=== PATIENT | female | born 1950 | race Hispanic/Latino ===

== ENCOUNTER 2016-07-20 16:50 | Observation (INO) | payer BC, MEDICARE ==
[2016-07-20 16:57] VITALS: BMI 22.2
[2016-07-20] MEDS ORDERED: TDAP Vaccine 0.5 mL Syr IM ONE (17:01)
--- NOTE | 2016-07-20 17:01 | ED PDOC ---
Arrival/HPI <LeviAamir - Last Filed: 07/20/16 21:38> - General Historian: Patient, EMS <Judah Abel - Last Filed: 07/20/16 23:28> - General Time Seen by Provider: 07/20/16 16:52 - History of Present Illness Narrative History of Present Illness (Text): 07/20/16 16:53 66 y/o female, pmh including htn/hypothyroidism/dm, nkda, last tetanus doesn't remember, biba c/o fall landed on the posterior head x 2 hours. Pt. stated that she was walking on the stair about 2 steps up on the stair, accidentally tripped on the stair, lost the balance and fall on the posterior head, laceration noted immediately with the blood, has headache and dizziness from the head injury, no nausea or vomiting, no chest pain or shortness of breath, no palpitation, no cardiopulmonary or neurological complaints prior to the fall , no other medical or psychological complaints. (Judah Abel) Past Medical History - Provider Review Nursing Documentation Reviewed: Yes - Infectious Disease Hx of Infectious Diseases: None - Cardiac Hx Cardiac Disorders: Yes Hx Hypertension: Yes Other/Comment: hypercholesteremia - Pulmonary Hx Respiratory Disorders: No - Neurological Hx Neurological Disorder: No - HEENT Hx HEENT Disorder: No - Renal Hx Renal Disorder: No - Endocrine/Metabolic Hx Endocrine Disorders: Yes Hx Diabetes Mellitus Type 2: Yes (IDDM) Hx Hypothyroidism: Yes - Hematological/Oncological Hx Blood Disorders: No - Integumentary Hx Dermatological Disorder: No - Musculoskeletal/Rheumatological Hx Musculoskeletal Disorders: No - Gastrointestinal Hx Gastrointestinal Disorders: No - Genitourinary/Gynecological Hx Genitourinary Disorders: No - Psychiatric Hx Psychophysiologic Disorder: Yes Hx Anxiety: Yes Hx Depression: Yes Hx Substance Use: No - Surgical History Hx Appendectomy: Yes Hx Cataract Extraction: Yes Hx Tonsillectomy: Yes Other/Comment: torn meniscus repair, carpal tunnel surgery - Anesthesia Hx Anesthesia: Yes Hx Anesthesia Reactions: No Hx Malignant Hyperthermia: No - Suicidal Assessment Feels Threatened In Home Enviroment: No <Judah Abel - Last Filed: 07/20/16 23:28> Family/Social History - Physician Review Nursing Documentation Reviewed: Yes Family/Social History: Unknown Family HX Smoking Status: Current Some Days Smoker Hx Alcohol Use: Yes Hx Substance Use: No <AbelJudah Tucker - Last Filed: 07/20/16 23:28> Allergies/Home Meds <Aamir Sims - Last Filed: 07/20/16 21:38> <Judah Abel - Last Filed: 07/20/16 23:28> Allergies/Adverse Reactions: Allergies No Known Allergies Allergy (Verified 07/20/16 16:57) Home Medications: Home Meds Medication Instructions Recorded Confirmed Canagliflozin [Invokana] 300 mg PO DAILY 12/18/14 12/18/14 Insulin Detemir [Levemir Flexpen] 14 unit SUBCUT HS 12/18/14 12/18/14 Levothyroxine Sodium [Synthroid] 0.025 mg PO DAILY 12/18/14 12/18/14 Metformin HCl [Metformin] 1,000 mg PO DAILY 12/18/14 12/18/14 Verapamil [Calan Tab] 120 mg PO DAILY 12/18/14 12/18/14 Review of Systems - Physician Review All systems were reviewed & negative as marked: Yes - Review of Systems Constitutional: absent: Fatigue, Fevers Eyes: absent: Vision Changes ENT: absent: Hearing Changes Respiratory: absent: Cough Cardiovascular: absent: Chest Pain Gastrointestinal: absent: Abdominal Pain, Diarrhea, Nausea, Vomiting Musculoskeletal: absent: Arthralgias, Back Pain Skin: absent: Rash, Pruritis Neurological: Headache, Dizziness. absent: Focal Weakness, Gait Changes, Speech Changes, Facial Droop, Disequilibrium, Seizure Psychiatric: absent: Anxiety, Depression, Suicidal Ideation <Judah Abel - Last Filed: 07/20/16 23:28> Physical Exam - Systems Exam Head: Present: Atraumatic, Normocephalic Pupils: Present: PERRL Extroacular Muscles: Present: EOMI Conjunctiva: Present: Normal Ears: Present: NORMAL TM, Normal Canal. No: Erythema, TM Bulging Mouth: Present: Moist Mucous Membranes Pharnyx: No: ERYTHEMA, EXUDATE, TONSILS ENLARGED Nose (External): Present: Atraumatic. No: Abrasion, Contusion, Laceration Nose (Internal): Present: Normal Inspection, No Active Bleeding. No: Rhinorrhea , Septal Deviation, Septal Hematoma Neck: Present: Normal Range of Motion, Trachea Midline. No: Meningeal Signs, MIDLINE TENDERNESS, Paraspinal Tenderness, Lymphadenopathy Respiratory/Chest: Present: Clear to Auscultation, Good Air Exchange. No: Respiratory Distress, Accessory Muscle Use Cardiovascular: Present: Regular Rate and Rhythm, Normal S1, S2. No: Murmurs Abdomen: Present: Normal Bowel Sounds. No: Tenderness, Distention, Peritoneal Signs Back: Present: Normal Inspection, Other (Throacic to LS spine: no midline tenderness or step off, no paraspinal tenderness, FROM without limitation, sensation intact, motor 5/5, no saddling gait. ). No: CVA Tenderness, Midline Tenderness, Paraspinal Tenderness, Pain with Leg Raise, Decubitus Ulcer Upper Extremity: Present: Normal Inspection. No: Cyanosis, Edema Lower Extremity: Present: Normal Inspection. No: Edema Neurological: Present: GCS=15, CN II-XII Intact, Speech Normal, Normal Cerebellar Funct, Gait Normal, Memory Normal, Other (normal finger to nose test , normal heel to villagomez test, no focal neurological deficits. ) Skin: Present: Warm, Dry, Normal Color. No: Rashes Psychiatric: Present: Alert, Oriented x 3, Normal Insight, Normal Concentration <Judah Abel - Last Filed: 07/20/16 23:28> Vital Signs Temp Pulse Resp BP Pulse Ox 07/20/16 17:12 98.0 F 92 H 18 147/63 96 Medical Decision Making - EKG Interpretation Interpreted by ED Physician: Yes Type: 12 lead EKG <Aamir Sims - Last Filed: 07/20/16 21:38> - RAD Interpretation Refrigerator Glazier: Radiologist <Judah Abel - Last Filed: 07/20/16 23:28> ED Course and Treatment: 07/20/16 20:29 Case was d/w neurosurgery .Ct Head reviewed by him.States unlikely that finding is traumatic hemorrhage.Recommends CT Head repeat tommorrow .Will admit for observation overnight. aware. (Aamir Sims) 07/20/16 17:03 -tdap, tylenol, meclizine -CT head and cervical -wound irrigate with normal saline, clean with betadine, will staple. 07/20/16 20:15 -CT Head is inconclusive as there is hyperdense lesion which I discussed with the incoming ER attending DR. Sims as he will speak to the neurosurgeon Dr. Espitia, will need MRI of the head. -CT Cervical show no acute traumatic findings. -I discussed with the patient and the family which they told me that the patient has some "twist" on the rt. cerebellum region which she never follow up , I told them I have no previous images to compared to as this can not rule out acute bleed. -Pt. agreed to be admitted for further evaluation. -I received the call from DR. Murphy from the [facility] which her impression is low probability for bleed as this is unlikely but she can not be sure which the MRI is the best option. -Dr. Mariano notified and will observe the patient. -Staple wound not be used as the patient will likely have MRI tomorrow or repeat CT. -wound irrigate and clean 1000cc of normal saline, clean with betadine, 1cc of plain 1% lidocaine injected locally, 3-0 prolene made 4 sutures which I explained to the patient that this needs to be removed in 7 days, bacitracin and gauze dressing applied, hemostasis obtained, bacitracin and gauze dressing applied. 07/20/16 20:56 -Pt. request the pain medication for her chronic lt. shoulder pain as she was suppose to have steroid injection to the lt. shoulder tomorrow. -I ordered labs/fall precautions/aspiration risk/IVF/neurocheck every 4 hours/ NPO and consult for Dr. Howell. -I ordered percocet and Lidoderm patch for the lt. shoulder pain. I told the CRITICAL CARE TRANSPORT NURSE that to hold all NSAIDs from the patient. -I spoke to Dr. Mariano over the phone about the CT head inconclusive result and the case, he agreed to admit the patient to his service with neurosurgery consult. -Dr. Sims spoke to the neursurgeon Dr. Dawn which Dr. Dawn reviewed the CT head and stated that this is unlikely bleed but will repeat the scan tomorrow. Dr. Sims will put in the admission order. ( Judah Abel) - RAD Interpretation Radiology Orders: 07/20/16 17:01 CERVICAL SPINE W/O CONTRAST [CT] Stat HEAD W/O CONTRAST [CT] Stat 07/20/16 20:12 CHEST PORTABLE [RAD] Stat CLINICAL HISTORY: 66 years old, female; Injury or trauma; Fall; Initial encounter; Laceration; Not specified; Injury date: 07/20/2016 TECHNIQUE: Axial computed tomography images of the cervical spine without intravenous contrast. This CT exam was performed using one or more of the following dose reduction techniques : automated exposure control, adjustment of the mA and/or kV according to patient size, and/ or use of iterative reconstruction technique. Coronal and sagittal reformatted images were created and reviewed. EXAM DATE/TIME: 07/20/2016 5:01 PM COMPARISON: No relevant prior studies available. FINDINGS: VERTEBRAE: No acute cervical spine fractures visualized. No significant vertebral subluxation seen on the sagittal reformatted images. Normal alignment of C1 and C2 and of the facet joints. DISCS/SPINAL CANAL/NEURAL FORAMINA: Multilevel degenerative disc disease, moderate in degree overall. Marked degenerative changes at the atlantoaxial joint. Multilevel facet joint degenerative changes. SOFT TISSUES: No acute abnormality of the visualized soft tissues is seen. LUNG APICES: No pneumothorax seen. IMPRESSION: - No acute cervical spine fractures identified. - See above for remaining findings. Thank you for allowing us to participate in the care of your patient. MICHAELA MIRELES | Final Radiology Report Dictated and Authenticated by: Isatu Murphy MD 07/20/2016 8:06 PM Eastern Time ([place] & [place]) CT Head: FINDINGS: BRAIN: Best seen on image 12 of series 3, there is an 11 x 10 mm rounded focus of hyperdensity in the right cerebellum, localized to the right middle cerebellar peduncle, with a CT attenuation of 51 Hounsfield units. Diffuse, age-related cortical atrophy and ventriculomegaly. Otherwise, no evidence of significant acute process. No acute extra-axial fluid collections visualized. No evidence of midline shift, ventricular effacement, basilar cistern effacement , or other significant intracranial mass effect. VENTRICLES: Fourth ventricle is patent. BONES/JOINTS: No acute fractures or other acute bony abnormality noted. SOFT TISSUES: Soft tissue swelling in the left posterior scalp. SINUSES: Opacification of a single right posterior ethmoid sinus. Remaining visualized paranasal sinuses appear clear. MASTOID AIR CELLS: Mastoid air cells appear clear. IMPRESSION: - 11 x 10 mm hyperdense, round focus in the right cerebellum, localized to the right middle cerebral peduncle, suspicious for acute hemorrhage. This may be unrelated to the recent head trauma, as this is an unusual location for post traumatic hemorrhage. Consider followup MRI of the brain for further evaluation. - See above for remaining findings. Thank you for allowing us to participate in the care of your patient. Dictated and Authenticated by: Isatu Murphy MD 07/20/2016 7:58 PM Eastern Time ([place] & [place]) (Judah Abel) - EKG Interpretation EKG Interpretation (Text): 07/20/16 21:38 EKG- NSR @ 75,septal infarct,NSSTT changes (Aamir Sims) - Medication Orders Current Medication Orders: Sodium Chloride (Sodium Chloride 0.9%) 1,000 mls @ 100 mls/hr IV .Q10H MICHAEL Insulin Detemir (Levemir) 14 unit SC HS MICHAEL Levothyroxine Sodium (Synthroid) 25 mcg PO ACB MICHAEL Verapamil HCl (Calan Tab) 120 mg PO DAILY MICHAEL Discontinued Medications Acetaminophen (Tylenol 325mg Tab) 650 mg PO STAT STA Stop: 07/20/16 17:03 Last Admin: 07/20/16 17:38 Dose: 650 MG MAR Pain/Vitals Document 07/20/16 17:38 EQ (Rec: 07/20/16 17:38 EQ [facility] [id number]) Pain Reassessment Is This A Pain ReAssessment? No Lidocaine (Lidoderm) 1 ea TD STAT STA Stop: 07/20/16 20:54 Meclizine HCl (Antivert) 25 mg PO STAT STA Stop: 07/20/16 17:03 Last Admin: 07/20/16 17:38 Dose: 25 MG Oxycodone/Acetaminophen (Percocet 5/325 Mg Tab) 1 tab PO STAT STA Stop: 07/20/16 20:54 Tetanus/Reduced Diphtheria/Acell Pertussis (Boostrix Vaccine Inj) 0.5 ml IM .ONCE ONE Stop: 07/20/16 17:02 Last Admin: 07/20/16 17:38 Dose: 0.5 ML [facility] Immunization Data Document 07/20/16 17:38 EQ (Rec: 07/20/16 17:40 EQ [facility] [id number]) Immunization Data Opt out of sending immunization data to No respository? Suppress immunization data to other No providers from registry? Vaccine Lot Number [id number] Vaccine Expiration Date 07/16/18 Site Given Left Deltoid Route Intramuscular Immunization Units ml - PA / MIXER HELPER / Resident Statement GUILLERMO has reviewed & agrees with the documentation as recorded. GUILLERMO has examined the patient and agrees with the treatment plan. <Aamir Sims - Last Filed: 07/20/16 21:38> - PA / MIXER HELPER / Resident Statement GUILLERMO has reviewed & agrees with the documentation as recorded. <Judah Abel - Last Filed: 07/20/16 23:28> Disposition/Present on Arrival <Aamir Sims - Last Filed: 07/20/16 21:38> - Present on Arrival Any Indicators Present on Arrival: No History of DVT/PE: No History of Uncontrolled Diabetes: No Urinary Catheter: No History of Decub. Ulcer: No History Surgical Site Infection Following: None - Disposition Have Diagnosis and Disposition been Completed?: Yes Disposition Time: 20:17 Patient Plan: Admission <Judah Abel - Last Filed: 07/20/16 23:28> - Disposition Diagnosis: Brain lesion, Fall, Scalp laceration, Abnormal computed tomography of head Disposition: HOSPITALIZED Patient Problems: Current Active Problems Problem Status Diagnosed Brain lesion Acute Fall Acute Scalp laceration Acute Condition: STABLE
--- NOTE | 2016-07-20 19:58 | CT ---
EXAM: CT Head Without Intravenous Contrast. CLINICAL HISTORY: 66 years old, female; Injury or trauma; Fall; Initial encounter; Laceration; Consciousness not specified; Without residual foreign body; Head, generalized; Injury date: 07/20/2016; Additional info: Posterior head laceration S/P fall TECHNIQUE: Axial computed tomography images of the head/brain without intravenous contrast. This CT exam was performed using one or more of the following dose reduction techniques: automated exposure control, adjustment of the mA and/or kV according to patient size, and/or use of iterative reconstruction technique. EXAM DATE/TIME: 07/20/2016 5:01 PM COMPARISON: No relevant prior studies available. FINDINGS: BRAIN: Best seen on image 12 of series 3, there is an 11 x 10 mm rounded focus of hyperdensity in the right cerebellum, localized to the right middle cerebellar peduncle, with a CT attenuation of 51 Hounsfield units. Diffuse, age-related cortical atrophy and ventriculomegaly. Otherwise, no evidence of significant acute process. No acute extra-axial fluid collections visualized. No evidence of midline shift, ventricular effacement, basilar cistern effacement, or other significant intracranial mass effect. VENTRICLES: Fourth ventricle is patent. BONES/JOINTS: No acute fractures or other acute bony abnormality noted. SOFT TISSUES: Soft tissue swelling in the left posterior scalp. SINUSES: Opacification of a single right posterior ethmoid sinus. Remaining visualized paranasal sinuses appear clear. MASTOID AIR CELLS: Mastoid air cells appear clear. IMPRESSION: - 11 x 10 mm hyperdense, round focus in the right cerebellum, localized to the right middle cerebral peduncle, suspicious for acute hemorrhage. This may be unrelated to the recent head trauma, as this is an unusual location for post traumatic hemorrhage. Consider followup MRI of the brain for further evaluation. - See above for remaining findings.
--- NOTE | 2016-07-20 20:07 | CT ---
EXAM: CT Cervical Spine Without Intravenous Contrast. CLINICAL HISTORY: 66 years old, female; Injury or trauma; Fall; Initial encounter; Laceration; Not specified; Injury date: 07/20/2016 TECHNIQUE: Axial computed tomography images of the cervical spine without intravenous contrast. This CT exam was performed using one or more of the following dose reduction techniques: automated exposure control, adjustment of the mA and/or kV according to patient size, and/or use of iterative reconstruction technique. Coronal and sagittal reformatted images were created and reviewed. EXAM DATE/TIME: 07/20/2016 5:01 PM COMPARISON: No relevant prior studies available. FINDINGS: VERTEBRAE: No acute cervical spine fractures visualized. No significant vertebral subluxation seen on the sagittal reformatted images. Normal alignment of C1 and C2 and of the facet joints. DISCS/SPINAL CANAL/NEURAL FORAMINA: Multilevel degenerative disc disease, moderate in degree overall. Marked degenerative changes at the atlantoaxial joint. Multilevel facet joint degenerative changes. SOFT TISSUES: No acute abnormality of the visualized soft tissues is seen. LUNG APICES: No pneumothorax seen. IMPRESSION: - No acute cervical spine fractures identified. - See above for remaining findings.
[2016-07-20] MEDS ORDERED: Oxycodone/Acetaminophen 5/325 mg Tab PO STA (20:53)
[2016-07-20] MEDS: Sodium Chloride 0.9% 1,000 ML IV SCH (23:49)
[2016-07-20] MEDS: Lidocaine 5% Patch TD STA (23:55)
[2016-07-21] MEDS: Insulin Detemir 100 units/ml Vial (Levemir) SC SCH ×2 (00:02→08:12)
[2016-07-21 00:07] LABS: ADD MANUAL DIFF? NO
[2016-07-21 00:18] LABS: ALB/GLOB RATIO 1.3 (1.1-1.8); ALKALINE PHOSPHATASE 81 U/L (38-133); ALT/SGPT 53 U/L (7-56); AST/SGOT 47 U/L (15-39); BILIRUBIN,TOTAL 0.3 mg/dL (0.2-1.3); BLOOD UREA NITROGEN 25 mg/dL (7-21); CALCIUM 9.5 mg/dL (8.4-10.5); CARBON DIOXIDE 26 mmol/L (21-33); CHLORIDE 96 mmol/L (98-107); GFR AFRICAN-AMERICAN > 60; POTASSIUM 4.3 mmol/L (3.6-5.0); SODIUM 135 mmol/L (132-148); TOTAL PROTEIN 7.3 g/dL (5.8-8.3)
[2016-07-21 00:21] LABS: BASO # 0.03 K/mm3 (0.0-2.0); BASO % 0.4 % (0.0-3.0); EOS # 0.1 (0.0-0.7); EOS % 1.1 % (1.5-5.0); GRAN # 5.44 (1.4-6.5); GRAN % 65.9 % (50.0-68.0); HEMATOCRIT 42.1 % (36.0-48.0); LYMPH # 2.2 (1.2-3.4); LYMPH % 26.3 % (22.0-35.0); MEAN CELL VOLUME 93.3 fL (80.0-105.0); MEAN CORPUSCULAR HEMOGLOBIN 31.9 pg (25.0-35.0); MEAN CORPUSCULAR HGB CONC 34.2 g/dl (31.0-37.0); MONO # 0.5 (0.1-0.6); MONO % 6.3 % (1.0-6.0); PLATELET COUNT 367 10^3/uL (120.0-450.0); RED CELL DISTRIBUTION WIDTH 13.9 % (11.5-14.5); WHITE BLOOD COUNT 8.3 10^3/ul (4.5-11.0)
[2016-07-21 00:26] LABS: GLUCOSE,RANDOM 482 mg/dL (70-110)
[2016-07-21] MEDS ORDERED: Morphine 2 mg/ml ISec IVP STA (01:02)
[2016-07-21] MEDS ORDERED: Insulin Regular 1 UNITS/0.01 ML ML SC STA (01:02)
[2016-07-21 05:28] VITALS: O2SAT 97
[2016-07-21] MEDS: Sodium Chloride 0.9% 1,000 ML IV SCH (05:58)
[2016-07-21] MEDS ORDERED: Oxycodone/Acetaminophen 5/325 mg Tab PO STA ×2 (06:00→12:42)
[2016-07-21] MEDS ORDERED: Dextrose 50% SYRINGE Inj (50 ml) ONE (07:03)
[2016-07-21] MEDS ORDERED: Dextrose 5%/0.9% NS 1,000 ML IV SCH (07:15)
[2016-07-21] MEDS ORDERED: Levothyroxine 25 MCG TAB PO SCH (07:30)
--- NOTE | 2016-07-21 08:03 | RAD ---
HISTORY: medical clearance COMPARISON: CT chest without contrast from 08/07/2013 FINDINGS: LUNGS: The lungs are well inflated and clear. There is no focal consolidation. PLEURA: No significant pleural effusion identified, no pneumothorax apparent. CARDIOVASCULAR: Normal. OSSEOUS STRUCTURES: No significant abnormalities. VISUALIZED UPPER ABDOMEN: Normal. OTHER FINDINGS: None. IMPRESSION: No active pulmonary disease.
[2016-07-21] MEDS: Lidocaine 5% Patch TD STA (08:18)
--- NOTE | 2016-07-21 10:24 | CP.PCM.PN ---
Subjective - Date & Time of Evaluation Date of Evaluation: 07/21/16 Time of Evaluation: 10:18 - Subjective Subjective: pt fell has 1 cm intra cerebellar hematoma MRI pending fully intact ok to d/c if mri does not show anything other than this hematoma than can be d/c 'ed home Objective - Vital Signs/Intake and Output Vital Signs (last 24 hours): Temp Pulse Resp BP Pulse Ox 97.7 F 72 18 119/70 97 07/21/16 05:27 07/21/16 05:27 07/21/16 05:27 07/21/16 05:27 07/21/16 05:27 Intake and Output: 07/21/16 07/21/16 06:59 18:59 Intake Total 643 Output Total 400 Balance 243 - Medications Medications: Current Medications Dextrose/Sodium Chloride (Dextrose 5%/0.9% Ns 1000 Ml) 1,000 mls @ 60 mls/hr IV .[id number] [facility] Last Admin: 07/21/16 08:17 Dose: 60 mls/hr Insulin Detemir (Levemir) 14 unit SC HS [facility] Last Admin: 07/21/16 08:12 Dose: Not Given Levothyroxine Sodium (Synthroid) 25 mcg PO ACB [facility] Last Admin: 07/21/16 08:20 Dose: 25 mcg Lisinopril (Zestril) 10 mg PO DAILY [facility] - Labs Labs: 07/20/16 23:48 07/20/16 23:48
--- NOTE | 2016-07-21 10:46 | MRI ---
PROCEDURE: MRI BRAIN WITHOUT CONTRAST HISTORY: fall COMPARISON: None. TECHNIQUE: Multiplanar, multisequence MR images of the brain were obtained without intravenous contrast enhancement. FINDINGS: HEMORRHAGE: There is a probable cavernous hemangioma in the right middle cerebellar peduncle. This measures 6 x 12 mm. The lesion is markedly hypo intense on gradient echo imaging image 6 series 7. This is secondary to hemosiderin deposition. The lesion has variable signal intensity on T2 and FLAIR imaging. This is of doubtful clinical significance. DWI: No evidence of an acute or early subacute infarction. BRAIN PARENCHYMA: No mass effect or edema. No atrophy or chronic microvascular ischemic changes. VENTRICLES: Unremarkable. No hydrocephalus. CRANIUM: Unremarkable. ORBITS: Grossly unremarkable. PARANASAL SINUSES/MASTOIDS: Clear VASCULAR SYSTEM: Skull base flow voids intact. OTHER FINDINGS: None. IMPRESSION: No acute intracranial findings. 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
--- NOTE | 2016-07-21 12:04 | CARD ---
APPROVED REPORT EKG Measurement Heart [id number] <Conclusion> Normal sinus rhythm Poor RR progression Abnormal ECG
[2016-07-21 12:06] VITALS: RESP 20
[2016-07-21 17:52] VITALS: BP 140/77; PULSE 74; TEMP 97.6
--- NOTE | 2016-07-21 20:34 | HP ---
The patient is a 66-year-old white female admitted on 07/20/16. The patient has a history of insulin -dependent diabetes mellitus, history of hypertension in the past. She had a fall at home, hitting h er head. She has a history of an intracerebral bleed in the past. The patient denies any syncope or seizure activity. She was brought to the Emergency Room with a laceration of the scalp. She was cruz tured. She had a CT done, which showed an old lesion, but was unable to assess whether she had any new intra cerebral bleeding, so she was held over for neurological examination and repeat MRI. PHYSICAL EXAMINATION: Shows a well-developed, well-nourished white female. She is extremely anxious and nervous, but she i s awake, and alert and oriented x 3. NEUROLOGIC EXAMINATION: Grossly intact. Cranial nerves II-XII are intact. Pupils are equal and linda ct to light and accommodation. Extraocular muscles are intact. There is a sutured laceration on the posterior aspect of the occipital skull. Her [id number] is within normal limits. Her equilibri um examination is normal. HEART: Regular sinus rhythm. CHEST: Clear to auscultation and percussion. ABDOMEN: Soft. EXTREMITIES: Without cyanosis, clubbing, edema. There is no physical trauma. IMPRESSION: A 66-year-old white female with a history of insulin-dependent diabetes mellitus poorly controlled, anxiety disorder, history of a central nervous system bleed in the past, with recent head trauma and fall. Tapan Mariano MD cc: [id number] TT: 07/21/2016 20:33:26 jn
--- NOTE | 2016-07-22 08:51 | DS ---
A 66-year-old white female with history of insulin-dependent diabetes mellitus, poorly controlled; an xiety disorder, status post fall, laceration of the scalp, old intracranial bleed, no new intracrania l bleed; syncopal episode. The patient was seen by Dr. Espitia, neurology. She had a CT and MRI which showed old intracrani al bleed. She was monitored in the hospital. Her blood sugars were controlled. She was under neuro logical checks while in the hospital. Eventually, the patient was able to be ambulated. She is awak e and alert and oriented x 3. Neurological examination did not change, and the patient was able to be discharged home in improved condition to be followed as an outpatient. FINAL DISCHARGE DIAGNOSES: Fall, scalp laceration, scalp contusion, and history of poorly controlled diabetes, and intracranial bleed in the past. Tapan Mariano MD cc: [id number] TT: 07/22/2016 08:50:59 jn
== END 2016-07-21 18:30 | disposition home or self-care (01) ==
LOC: ED 16:50 → ERH 21:16 → 2RNO 07-21 00:48
PROVIDERS: ADMIT Internal Medicine; ATTEND Internal Medicine
DX: S01.01XA Laceration without foreign body of scalp, initial encounter (principal); S00.03XA Contusion of scalp, initial encounter; E11.65 Type 2 diabetes mellitus with hyperglycemia; I10 Essential (primary) hypertension; F41.9 Anxiety disorder, unspecified; E03.9 Hypothyroidism, unspecified; E78.00 Pure hypercholesterolemia, unspecified; W10.8XXA Fall (on) (from) other stairs and steps, initial encounter; Y92.019 Unspecified place in single-family (private) house as the place of occurrence of the external cause; Y93.01 Activity, walking, marching and hiking; Z79.4 Long term (current) use of insulin
CPT/HCPCS: 70450; 70551; 71010; 72125; 80053; 82948; 85025; 86850; 86900; 90471; 90715; 93005; 96372; 99285; G0378; J2270; J7040; J7042

== ENCOUNTER 2016-08-24 22:03 | Observation (INO) | payer BC, MEDICARE ==
[2016-08-24 22:07] VITALS: BMI 23.3
[2016-08-24 22:30] LABS: ADD MANUAL DIFF? NO
[2016-08-24 22:33] LABS: BASO # 0.07 K/mm3 (0.0-2.0); BASO % 0.6 % (0.0-3.0); EOS # 0.1 (0.0-0.7); EOS % 1.2 % (1.5-5.0); GRAN # 6.54 (1.4-6.5); GRAN % 60.4 % (50.0-68.0); HEMATOCRIT 36.9 % (36.0-48.0); LYMPH # 3.3 (1.2-3.4); LYMPH % 30.2 % (22.0-35.0); MEAN CELL VOLUME 92.5 fL (80.0-105.0); MEAN CORPUSCULAR HEMOGLOBIN 31.3 pg (25.0-35.0); MEAN CORPUSCULAR HGB CONC 33.9 g/dl (31.0-37.0); MEAN PLATELET VOLUME 9.5 fl (7.0-11.0); MONO # 0.8 (0.1-0.6); MONO % 7.6 % (1.0-6.0); PLATELET COUNT 357 10^3/uL (120.0-450.0); RED CELL DISTRIBUTION WIDTH 14.4 % (11.5-14.5); WHITE BLOOD COUNT 10.8 10^3/ul (4.5-11.0)
--- NOTE | 2016-08-24 22:42 | ED PDOC ---
Arrival/HPI - General Chief Complaint: Chest Pain Time Seen by Provider: 08/24/16 22:04 Historian: Patient, EMS - History of Present Illness Narrative History of Present Illness (Text): 08/24/16 22:39 Marita Roman is a 66 year old female, with a history of hypertension, hypothyroidism, diabetes and hypercholesterolemia, presents to the emergency department for altered mental status. Patient complains of numbness and tingling sensation to left arm, but denies any chest pain or shortness of breath. EKG done by EMS, revealed possible ST elevations in inferior leads and code heart was called. Patient denies any other complaints at this time. Time/Duration: 1/2 hour Symptom Onset: Sudden Symptom Course: Improving Activities at Onset: Light Context: Home Past Medical History - Provider Review Nursing Documentation Reviewed: Yes - Infectious Disease Hx of Infectious Diseases: None - Reproductive Menopause: Yes - Cardiac Hx Cardiac Disorders: Yes Hx Hypertension: Yes - Pulmonary Hx Respiratory Disorders: No - Neurological Hx Neurological Disorder: No - HEENT Hx HEENT Disorder: No - Renal Hx Renal Disorder: No - Endocrine/Metabolic Hx Endocrine Disorders: Yes Hx Diabetes Mellitus Type 1: Yes Hx Hypothyroidism: Yes - Hematological/Oncological Hx Blood Disorders: No - Integumentary Hx Dermatological Disorder: No - Musculoskeletal/Rheumatological Hx Musculoskeletal Disorders: No Hx Falls: Yes - Gastrointestinal Hx Gastrointestinal Disorders: No - Genitourinary/Gynecological Hx Genitourinary Disorders: No - Psychiatric Hx Psychophysiologic Disorder: Yes Hx Anxiety: Yes Hx Depression: Yes Hx Substance Use: No - Surgical History Hx Appendectomy: Yes Other/Comment: torn meniscus repair, carpal tunnel surgery, tonsillectomy, cataract extraction - Anesthesia Hx Anesthesia: Yes Hx Anesthesia Reactions: No Hx Malignant Hyperthermia: No - Suicidal Assessment Feels Threatened In Home Enviroment: No Family/Social History - Physician Review Nursing Documentation Reviewed: Yes Family/Social History: No Known Family HX Smoking Status: Never Smoked Hx Alcohol Use: No Hx Substance Use: No Allergies/Home Meds Allergies/Adverse Reactions: Allergies No Known Allergies Allergy (Verified 08/24/16 22:10) Home Medications: Home Meds Medication Instructions Recorded Confirmed Canagliflozin [Invokana] 300 mg PO DAILY 12/18/14 12/18/14 Insulin Detemir [Levemir Flexpen] 14 unit SUBCUT HS 12/18/14 12/18/14 Levothyroxine Sodium [Synthroid] 0.025 mg PO DAILY 12/18/14 12/18/14 Metformin HCl 1,000 mg PO DAILY 12/18/14 12/18/14 Verapamil [Calan Tab] 120 mg PO DAILY 12/18/14 12/18/14 Review of Systems - Physician Review All systems were reviewed & negative as marked: Yes - Review of Systems Constitutional: Normal. absent: Fatigue, Fevers Respiratory: Normal. absent: SOB, Cough Cardiovascular: Normal. absent: Chest Pain Musculoskeletal: Other (numbness and tingling sensation to left arm ) Neurological: Normal. absent: Headache, Dizziness Psychiatric: Normal Physical Exam Vital Signs Reviewed: Yes Vital Signs Temp Pulse Resp BP Pulse Ox 08/25/16 03:39 80 15 119/56 L 94 L 08/25/16 03:37 79 61 H 08/25/16 03:11 72 18 104/55 L 99 08/25/16 02:04 74 16 137/70 100 08/25/16 00:04 98.4 F 72 18 142/78 99 08/24/16 22:09 75 16 136/54 L 97 Temperature: Afebrile Blood Pressure: Hypotensive Pulse: Regular Respiratory Rate: Normal Appearance: Positive for: Well-Appearing, Non-Toxic, Comfortable Pain Distress: None Mental Status: Positive for: Alert and Oriented X 3 Finger Stick Blood Glucose: 164 - Systems Exam Head: Present: Atraumatic, Normocephalic Extroacular Muscles: Present: EOMI Conjunctiva: Present: Normal Mouth: Present: Moist Mucous Membranes Respiratory/Chest: Present: Clear to Auscultation, Good Air Exchange. No: Respiratory Distress, Accessory Muscle Use Cardiovascular: Present: Regular Rate and Rhythm, Normal S1, S2. No: Murmurs Abdomen: Present: Normal Bowel Sounds. No: Tenderness, Distention, Peritoneal Signs Upper Extremity: Present: Normal Inspection. No: Cyanosis, Edema Lower Extremity: Present: Normal Inspection. No: Edema Neurological: Present: GCS=15, CN II-XII Intact, Speech Normal Skin: Present: Warm, Dry, Normal Color. No: Rashes Psychiatric: Present: Alert, Oriented x 3, Normal Insight, Normal Concentration Medical Decision Making ED Course and Treatment: 08/24/16 22:44 Impression: A 66 year old female who presents to the emergency department complaining for altered mental status. Plan: -- CT Head -- EKG -- Labs, cardiac enzymes -- Chest X-ray -- Urinalysis -- Reassess and disposition Progress Notes: 08/25/16 00:02 EXAM: CT Head Without Intravenous Contrast FINDINGS: Brain: No acute intracranial hemorrhage. Age-appropriate periventricular white matter disease. No edema. Findings within the right middle cerebellar peduncle, consistent with a cavernous hemangioma, unchanged in size from 07/20/2016. Ventricles: Age-appropriate ventriculomegaly. Bones: No acute displaced fracture. Sinuses: Unremarkable as visualized. No acute sinusitis. Mastoid air cells: Unremarkable as visualized. No mastoid effusion. IMPRESSION: Stable CT examination of the head, without acute intracranial hemorrhage, or suspicious mass effect. 08/25/16 00:58 Case discussed with who agrees with the plan to observe patient in telemetry for AMS. Accepts patient under his service. - Lab Interpretations Lab Results: 08/24/16 22:24 08/24/16 22:24 Lab Results 08/24/16 22:24: Sodium 134, Potassium 3.8, Chloride 102, Carbon Dioxide 26, Anion Gap 10, BUN 30 H, Creatinine 0.8, Est GFR ( Amer) > 60, Est GFR ( Non-Af Amer) > 60, Random Glucose 132 H, Calcium 8.9, Magnesium 2.3 H, Total Bilirubin 0.4, AST 35, ALT 47, Alkaline Phosphatase 82, Lactate Dehydrogenase 431, Total Creatine Kinase 136, Troponin I < 0.01, Total Protein 6.5, Albumin 3.8, Globulin 2.7, Albumin/Globulin Ratio 1.4 08/24/16 22:24: WBC 10.8 D, RBC 3.99, Hgb 12.5, Hct 36.9, MCV 92.5, MCH 31.3, MCHC 33.9, RDW 14.4, Plt Count 357, MPV 9.5, Gran % 60.4, Lymph % (Auto) 30.2, [place] % (Auto) 7.6 H, Eos % (Auto) 1.2 L, Baso % (Auto) 0.6, Gran # 6.54 H, Lymph # 3.3, [place] # 0.8 H, Eos # 0.1, Baso # 0.07 08/24/16 22:11: POC Glucose (mg/dL) 165 H - RAD Interpretation Radiology Orders: 08/24/16 22:15 HEAD W/O CONTRAST [CT] Stat CHEST ONE VIEW [RAD] Stat - Medication Orders Current Medication Orders: Discontinued Medications Insulin Detemir (Levemir) 14 unit SC HS MICHAEL Insulin Human Regular (Humulin R Low) 0 units SC ACHS MICHAEL PRN Reason: Protocol Last Admin: 08/25/16 07:53 Dose: 4 units Levothyroxine Sodium (Synthroid) 25 mcg PO DAILY MICHAEL Last Admin: 08/25/16 09:07 Dose: 25 mcg Verapamil HCl (Calan Tab) 120 mg PO DAILY MICHAEL Last Admin: 08/25/16 09:07 Dose: 120 mg - Scribe Statement The provider has reviewed the documentation as recorded by the Adrian Penny Provider Attestation: All medical record entries made by the Adrian were at my direction and personally dictated by me. I have reviewed the chart and agree that the record accurately reflects my personal performance of the history, physical exam, medical decision making, and the department course for this patient. I have also personally directed, reviewed, and agree with the discharge instructions and disposition. Disposition/Present on Arrival - Present on Arrival Any Indicators Present on Arrival: No History of DVT/PE: No History of Uncontrolled Diabetes: Yes Urinary Catheter: No History of Decub. Ulcer: No History Surgical Site Infection Following: None - Disposition Have Diagnosis and Disposition been Completed?: Yes Diagnosis: Altered mental status Disposition: HOSPITALIZED Disposition Time: 00:55 Condition: FAIR
[2016-08-24 22:43] LABS: ALB/GLOB RATIO 1.4 (1.1-1.8); ALKALINE PHOSPHATASE 82 U/L (38-133); ALT/SGPT 47 U/L (7-56); AST/SGOT 35 U/L (15-39); BILIRUBIN,TOTAL 0.4 mg/dL (0.2-1.3); BLOOD UREA NITROGEN 30 mg/dL (7-21); CALCIUM 8.9 mg/dL (8.4-10.5); CARBON DIOXIDE 26 mmol/L (21-33); CHLORIDE 102 mmol/L (98-107); GFR AFRICAN-AMERICAN > 60; GLUCOSE,RANDOM 132 mg/dL (70-110); MAGNESIUM 2.3 mg/dL (1.7-2.2); POTASSIUM 3.8 mmol/L (3.6-5.0); SODIUM 134 mmol/L (132-148); TOTAL PROTEIN 6.5 g/dL (5.8-8.3)
[2016-08-24 22:55] LABS: TROPONIN I < 0.01 ng/mL
--- NOTE | 2016-08-24 23:37 | CT ---
EXAM: CT Head Without Intravenous Contrast CLINICAL HISTORY: 66 years old, female; Pain and signs and symptoms; Syncope and collapse; Headache; Tension; Additional info: Near syncope TECHNIQUE: Axial computed tomography images of the head/brain without intravenous contrast. This CT exam was performed using one or more of the following dose reduction techniques: automated exposure control, adjustment of the mA and/or kV according to patient size, and/or use of iterative reconstruction technique. COMPARISON: CT - HEAD W/O CONTRAST 07/20/2016 6:39:35 PM FINDINGS: Brain: No acute intracranial hemorrhage. Age-appropriate periventricular white matter disease. No edema. Findings within the right middle cerebellar peduncle, consistent with a cavernous hemangioma, unchanged in size from 07/20/2016. Ventricles: Age-appropriate ventriculomegaly. Bones: No acute displaced fracture. Sinuses: Unremarkable as visualized. No acute sinusitis. Mastoid air cells: Unremarkable as visualized. No mastoid effusion. IMPRESSION: Stable CT examination of the head, without acute intracranial hemorrhage, or suspicious mass effect.
[2016-08-25 04:13] VITALS: TEMP 97.5
[2016-08-25] MEDS ORDERED: Insulin Reg-LOW-Coverage SC SCH (07:30)
--- NOTE | 2016-08-25 08:14 | RAD ---
PROCEDURE: CHEST RADIOGRAPH, 1 VIEW HISTORY: pain COMPARISON: 07/20/2016 FINDINGS: LUNGS: Clear. PLEURA: No pneumothorax or pleural fluid seen. CARDIOVASCULAR: Normal. OSSEOUS STRUCTURES: No significant abnormalities. VISUALIZED UPPER ABDOMEN: Normal. OTHER FINDINGS: None. IMPRESSION: No active disease.
[2016-08-25] MEDS ORDERED: Levothyroxine 25 MCG TAB PO SCH (10:00)
[2016-08-25 11:38] VITALS: BP 130/86; PULSE 65; RESP 12; O2SAT 99
--- NOTE | 2016-08-25 12:31 | CON ---
DATE: 08/25/2016 REASON FOR CONSULTATION: Cardiac evaluation, admitted with hypoglycemia, syncope. BRIEF CLINICAL HISTORY: This is a 66-year-old female with a past medical history of diabetes, histor y of cardiac catheterization many years ago, told nonobstructive coronary artery disease, admitted wi th altered mental status secondary to hypoglycemia. Initial EKG shows some questionable ST elevation , so code STEMI was called, later on was canceled. EKG in the ER was absolutely negative. The patie nt denies any chest pain, shortness of breath, any palpitation. PAST MEDICAL HISTORY: Significant for diabetes, hyperlipidemia, hypertension, history of cardiac cat heterization done many years ago and was told negative. CURRENT MEDICATIONS: The patient is taking verapamil, metformin, levothyroxine, insulin, Invokana. REVIEW OF SYSTEMS: As per HPI. PHYSICAL EXAMINATION: VITAL SIGNS: Temperature afebrile, heart rate 80, blood pressure . HEENT: PERRLA. Extraocular muscles intact. NECK: Supple. No carotid bruits. No thyromegaly. CHEST: Clear to auscultation. HEART: S1, S2 regular. ABDOMEN: Soft. EXTREMITIES: Clubbing, cyanosis negative. BLOOD WORKUP: WBC 10.8, hemoglobin 12. , hematocrit 36.9, platelet count 357. Chemistry shows s odium 130, potassium 3. , chloride 102, carbon dioxide 26, anion gap of 10, BUN 30, creatinine 0. 8. Troponin 0.01, negative. EKG shows normal sinus. IMPRESSION: No evidence of acute myocardial infarction, no evidence of acute coronary syndrome, hypo glycemia on admission, syncope. RECOMMENDATION: risk factors, suggest echo and a stress test. The patient is being discharged already according to the patient by Dr. Mariano, so we will schedule a stress test next week. We will follow with you. Thank you, Dr. Mariano, for providing us the opportunity in taking care of the patient. Sai Dyer MD cc: [id number] TT: 08/25/2016 12:30:26 Confirmation # [id number] Dictation # [id number]
--- NOTE | 2016-08-25 18:48 | HP ---
HISTORY OF PRESENT ILLNESS: A 66-year-old white female with history of insulin-dependent diabetes me llitus, multiple episodes of syncope in the past, recent history of falling and head trauma. The pat tori had been doing well at home, controlling her blood sugars; however, she took her insulin but did not immediately eat and wound up passing out on the floor, 911 was called. In the ambulance it was noted the patient had elevated ST segments. The patient was brought to the Emergency Room. There we re no further EKG changes noticed in the ER. First troponin was negative. The patient was transferr ed to the intensive care unit for observation and possible CAD. PHYSICAL EXAMINATION: GENERAL: Shows a well-developed but thin white female in no apparent distress. HEENT: Essentially within normal limits. HEART: Regular sinus rhythm. No S3 or murmurs. CHEST: Clear to auscultation and percussion. ABDOMEN: Benign. EXTREMITIES: Without cyanosis, clubbing or edema. NEUROLOGIC: Grossly intact. IMPRESSION AND PLAN: A 66-year-old white female admitted after a syncopal episode, possible hypoglyc emic episode and elevated ST segments on EKG. Rule out coronary artery disease. Tapan Mariano MD cc: [id number] TT: 08/25/2016 18:47:42 precious
--- NOTE | 2016-08-25 20:51 | DS ---
A 66-year-old white female admitted to the hospital with a syncopal episode, taking her insulin witho ut eating. The patient also had some elevated ST segments in the ambulance. Repeat EKGs and troponi ns were all negative. The patient was seen in consultation by Dr. Dyer. The patient was scheduled f or an outpatient stress test, was able to be discharged home in improved condition. FINAL DISCHARGE DIAGNOSES: Syncope secondary to hypoglycemia, abnormal EKG. Tapan Mariano MD cc: [id number] TT: 08/25/2016 20:50:09 precious
[2016-08-25] MEDS ORDERED: Insulin Detemir 100 units/ml Vial (Levemir) SC SCH (22:00)
[2016-08-25] MEDS ORDERED: INSULIN DETEMIR 14 UNIT SUBCUT SCH (22:00)
--- NOTE | 2016-08-25 22:53 | CARD ---
APPROVED REPORT EKG Measurement Heart [id number] <Conclusion> Normal sinus rhythm Normal ECG
== END 2016-08-25 12:12 | disposition home or self-care (01) ==
LOC: ED 22:03 → ERH 08-25 00:56 → CCU 08-25 03:43
PROVIDERS: ADMIT Internal Medicine; ATTEND Internal Medicine
DX: E10.649 Type 1 diabetes mellitus with hypoglycemia without coma (principal); R94.31 Abnormal electrocardiogram [ECG] [EKG]; R55 Syncope and collapse; I10 Essential (primary) hypertension; E78.5 Hyperlipidemia, unspecified; E03.9 Hypothyroidism, unspecified; I25.10 Atherosclerotic heart disease of native coronary artery without angina pectoris; Z79.4 Long term (current) use of insulin
CPT/HCPCS: 70450; 71010; 80053; 82550; 82948; 83615; 83735; 84484; 85025; 93005; 99285; G0378

== ENCOUNTER 2016-11-29 20:56 | Observation (INO) | payer BC, MEDICARE ==
[2016-11-29 21:02] VITALS: BMI 20.7
--- NOTE | 2016-11-29 21:23 | ED PDOC ---
Arrival/HPI - General Historian: Patient - History of Present Illness Time/Duration: Prior to Arrival Symptom Onset: Sudden Symptom Course: Worsening Context: Walking - General Chief Complaint: Trauma Time Seen by Provider: 11/29/16 21:00 - History of Present Illness Narrative History of Present Illness (Text): 11/29/16 21:20 66 year old female with past medical history of 1 cm intracerebellar hemorrhage presents after experiencing a fall while walking her dog. Patient states that she had stopped to tie her shoe lace and then felt dizzy and tried to get up and fell and hit her head. Patient is only complaining of a headache. Patient is not on anticoagulant. She denies denies having any weakness or numbness in her extremities. (Beverly Rizzo) Past Medical History - Provider Review Nursing Documentation Reviewed: Yes - Infectious Disease Hx of Infectious Diseases: None - Cardiac Hx Hypertension: Yes - Pulmonary Hx Respiratory Disorders: No - Neurological Hx Neurological Disorder: No - HEENT Hx HEENT Disorder: No - Renal Hx Renal Disorder: No - Endocrine/Metabolic Hx Endocrine Disorders: Yes Hx Diabetes Mellitus Type 1: Yes Hx Hypothyroidism: Yes - Hematological/Oncological Hx Blood Disorders: No - Integumentary Hx Dermatological Disorder: No - Musculoskeletal/Rheumatological Hx Arthritis: Yes - Gastrointestinal Hx Gastrointestinal Disorders: No - Genitourinary/Gynecological Hx Genitourinary Disorders: No - Psychiatric Hx Psychophysiologic Disorder: Yes Hx Anxiety: Yes Hx Depression: Yes Hx Substance Use: No - Surgical History Hx Appendectomy: Yes Other/Comment: torn meniscus repair, carpal tunnel surgery, tonsillectomy, cataract extraction - Anesthesia Hx Anesthesia: Yes Hx Anesthesia Reactions: No Hx Malignant Hyperthermia: No - Suicidal Assessment Feels Threatened In Home Enviroment: No Family/Social History - Physician Review Nursing Documentation Reviewed: Yes Family/Social History: Unknown Family HX Smoking Status: Never Smoked Hx Alcohol Use: No Hx Substance Use: No Allergies/Home Meds Allergies/Adverse Reactions: Allergies No Known Allergies Allergy (Verified 11/29/16 21:02) Home Medications: Home Meds Medication Instructions Recorded Confirmed Canagliflozin [Invokana] 100 mg PO DAILY 12/18/14 11/29/16 Levothyroxine Sodium [Synthroid] 0.88 mg PO DAILY 12/18/14 11/29/16 Metformin HCl 500 mg PO DAILY 12/18/14 11/29/16 Ezetimibe 10 mg PO DAILY 09/07/16 11/29/16 Review of Systems - Review of Systems Systems not reviewed;Unavailable: Acuity of Condition Physical Exam Temperature: Afebrile Blood Pressure: Hypertensive Pulse: Regular Respiratory Rate: Normal Appearance: Positive for: Uncomfortable Pain Distress: Moderate Mental Status: Positive for: Alert and Oriented X 3 - Systems Exam Head: Present: Contusion, Laceration (bump on right posterior aspect of head with significant bleeding noted. ) Mouth: Present: Moist Mucous Membranes Neck: Present: Normal Range of Motion Respiratory/Chest: Present: Clear to Auscultation, Good Air Exchange. No: Respiratory Distress, Accessory Muscle Use Cardiovascular: Present: Regular Rate and Rhythm, Normal S1, S2. No: Murmurs Abdomen: Present: Normal Bowel Sounds. No: Tenderness, Distention Lower Extremity: No: Edema, CALF TENDERNESS Neurological: Present: GCS=15, CN II-XII Intact, Speech Normal Skin: Present: Laceration Psychiatric: Present: Alert, Oriented x 3, Normal Insight, Normal Concentration Vital Signs Temp Pulse Resp BP Pulse Ox 11/29/16 23:34 17 118/67 97 11/29/16 21:11 98 F 100 H 16 150/51 L 100 Medical Decision Making - EKG Interpretation Interpreted by ED Physician: Yes Type: 12 lead EKG ED Course and Treatment: Impression: In agreement with resident note, which includes further HPI details. Patient was seen and evaluated with resident, came up with plan and treatment together. 66 year old female presents s/p fall while walking her dog. Pt reports she was tying her shoe when she felt dizzy, fell, and hit her head; now complaining of headache. Plan: -- CT Head -- CT Cervical Spine -- Percocet -- Lidocaine -- Reassess and disposition Laceration repair performed with biomedical manager. Hematoma evacuated PROCEDURE: LACERATION REPAIR Performed by the emergency provider Location: Right posterior scalp Length: 2 inches Description: clean wound edges, no foreign bodies Distal CMS: Normal. No deficits. Neurovascularly intact. Anesthesia: Lidocaine 1% Preparation: The wound was cleaned with NS and Betadyne. The area was prepped and draped in the usual sterile fashion. Exploration: The wound was explored and no foreign bodies were found. Procedure: The wound was closed with 4-0, 3-0 nylon and viccryl. There was good approximation. In total, 6 stitches were used. Post-Procedure: Good closure and hemostasis. The patient tolerated the procedure well and there were no complications. CSM remains intact. Post procedure dressing applied. 11/29/16 23:[address] Tomas, who is aware and agrees with plan. Accepts pt in to hospitalist service. regional vice president life sales transmission engineer notified. (Herman Conner) 11/29/16 21:25 66 year old female presented after experiencing a questionable mechanical fall outside. significant bleeding and a small raised bump noted on posterior aspect of head. Will get CT of head without contrast 11/29/16 23:43 Patient's hematoma is evacuated and is sutured. (Beverly Rizzo) - Lab Interpretations Lab Results: 11/29/16 23:12 11/29/16 23:12 Lab Results 11/29/16 23:12: PT 10.1, INR 0.94, APTT 25.3 11/29/16 23:12: WBC 14.2 H D, RBC 4.26, Hgb 13.1, Hct 39.2, MCV 92.0, MCH 30.8, MCHC 33.4, RDW 13.3, Plt Count 422, MPV 10.2, Gran % 74.9 H, Lymph % (Auto) 17.4 L, [place]ck[place] % (Auto) 5.9, Eos % (Auto) 1.1 L, Baso % (Auto) 0.7, Gran # 10.61 H , Lymph # 2.5, Mckenzie # 0.8 H, Eos # 0.2, Baso # 0.10 11/29/16 23:12: Sodium 133, Potassium 4.5, Chloride 98, Carbon Dioxide 24, Anion Gap 16, BUN 35 H, Creatinine 0.7, Est GFR ( Amer) > 60, Est GFR ( Non-Af Amer) > 60, Random Glucose 461 H* D, Calcium 9.6, Total Bilirubin 0.3, AST 36, ALT 46, Alkaline Phosphatase 79, Total Protein 7.2, Albumin 4.2, Globulin 3.1, Albumin/Globulin Ratio 1.4 - RAD Interpretation Narrative RAD Interpretations (Text): 11/29/16 21:51 CT of head shows hematoma on right side. No skull fractures noted (Karim,Beverly) Radiology Orders: 11/29/16 21:12 HEAD W/O CONTRAST [CT] Stat 11/29/16 21:40 CERVICAL SPINE W/O CONTRAST [CT] Stat - EKG Interpretation EKG Interpretation (Text): 11/30/16 00:[address] changes. Normal axis, normal interval (Beverly Rizzo) - Medication Orders Current Medication Orders: Sodium Chloride (Sodium Chloride 0.9%) 1,000 mls @ 125 mls/hr IV .Q8H MICHAEL Last Admin: 11/29/16 23:33 Dose: 125 mls/hr Insulin Detemir (Levemir) 14 unit SC HS MICHAEL Discontinued Medications Cefazolin Sodium (Ancef 1gm In Ns) 1 gm in 100 mls @ 100 mls/hr IVPB STAT STA PRN Reason: Protocol Stop: 11/30/16 01:14 Lidocaine HCl (Lidocaine 1% (20ml)) 20 ml IJ STAT STA Stop: 11/29/16 21:46 Ondansetron HCl (Zofran Odt) Confirm Administered Dose 4 mg .ROUTE .STK-MED ONE Stop: 11/29/16 23:04 Oxycodone/Acetaminophen (Percocet 5/325 Mg Tab) 1 tab PO STAT STA Stop: 11/29/16 21:41 Last Admin: 11/29/16 21:47 Dose: 1 tab Disposition/Present on Arrival - Present on Arrival Any Indicators Present on Arrival: Yes History of DVT/PE: No History of Uncontrolled Diabetes: Yes Urinary Catheter: No History of Decub. Ulcer: No History Surgical Site Infection Following: None - Disposition Have Diagnosis and Disposition been Completed?: Yes Disposition Time: 00:00 Patient Plan: Admission - Disposition Diagnosis: Scalp hematoma Disposition: HOSPITALIZED Condition: STABLE
[2016-11-29] MEDS ORDERED: Oxycodone/Acetaminophen 5/325 mg Tab PO STA (21:40)
[2016-11-29] MEDS ORDERED: Lidocaine 1% Inj (20ml) IJ STA (21:45)
--- NOTE | 2016-11-29 22:25 | CT ---
EXAM: CT Head Without Intravenous Contrast CLINICAL HISTORY: 66 years old, female; Injury or trauma; Fall; Initial encounter; Abrasion; Head, generalized TECHNIQUE: Axial computed tomography images of the head/brain without intravenous contrast. This CT exam was performed using one or more of the following dose reduction techniques: automated exposure control, adjustment of the mA and/or kV according to patient size, and/or use of iterative reconstruction technique. EXAM DATE/TIME: 11/29/2016 9:12 PM COMPARISON: Prior head CT of 08/24/2016 FINDINGS: BRAIN: Stable appearance of a faint 1.3 cm oval-shaped focus of hyperdensity in the right posterior fossa, in the region of the middle cerebellar peduncle, also seen on a prior MRI, most likely representing a cavernous angioma. Diffuse, age-related cortical atrophy and ventriculomegaly. No significant acute abnormality identified. No acute hemorrhage seen within the brain. No acute extra-axial fluid collections visualized. No evidence of significant mass effect within the brain. VENTRICLES: See above. BONES/JOINTS: No acute fractures or other acute bony abnormality noted. SOFT TISSUES: Marked soft tissue swelling in the right scalp posteriorly. There is a large scalp hematoma in this area, measuring 3 cm. SINUSES: Visualized paranasal sinuses appear clear. MASTOID AIR CELLS: Mastoid air cells appear clear. IMPRESSION: - No evidence of acute intracranial injury or fractures. - Large hematoma in the right posterior scalp. - Stable appearance of a 1.3 cm hyperdense lesion in the right posterior fossa, most likely a cavernous angioma. - See above for remaining findings.
[2016-11-29] MEDS: Sodium Chloride 0.9% 1,000 ML IV SCH (23:33)
[2016-11-29 23:50] LABS: BASO % 0.7 % (0.0-3.0); EOS # 0.2 (0.0-0.7); EOS % 1.1 % (1.5-5.0); GRAN # 10.61 (1.4-6.5); GRAN % 74.9 % (50.0-68.0); HEMOGLOBIN 13.1 gm/dL (12.0-16.0); LYMPH # 2.5 (1.2-3.4); LYMPH % 17.4 % (22.0-35.0); MEAN CORPUSCULAR HEMOGLOBIN 30.8 pg (25.0-35.0); MEAN CORPUSCULAR HGB CONC 33.4 g/dl (31.0-37.0); MEAN PLATELET VOLUME 10.2 fl (7.0-11.0); MONO # 0.8 (0.1-0.6); MONO % 5.9 % (1.0-6.0); PLATELET COUNT 422 10^3/uL (120.0-450.0); RBC 4.26 10^6/uL (3.5-6.1); RED CELL DISTRIBUTION WIDTH 13.3 % (11.5-14.5)
[2016-11-29 23:56] LABS: WHITE BLOOD COUNT 14.2 10^3/ul (4.5-11.0)
[2016-11-29 23:57] LABS: ALB/GLOB RATIO 1.4 (1.1-1.8); ALBUMIN 4.2 g/dL (3.0-4.8); ALT/SGPT 46 U/L (7-56); AST/SGOT 36 U/L (15-39); BLOOD UREA NITROGEN 35 mg/dL (7-21); CALCIUM 9.6 mg/dL (8.4-10.5); GFR AFRICAN-AMERICAN > 60; GFR NON-AFRICAN AMERICAN > 60
[2016-11-30 00:07] LABS: INR 0.94 (0.93-1.08); PARTIAL THROMBOPLASTIN TIME 25.3 Seconds (23.7-30.8); PROTHROMBIN TIME 10.1 Seconds (9.9-11.8)
[2016-11-30] MEDS ORDERED: Insulin Detemir 100 units/ml Vial (Levemir) SC SCH (00:15)
[2016-11-30] MEDS ORDERED: ceFAZolin 1 gm in NS 1 GM/100 ML BAG IVPB STA (00:15)
--- NOTE | 2016-11-30 01:02 | CT ---
EXAM: CT Cervical Spine Without Intravenous Contrast CLINICAL HISTORY: 66 years old, female; Injury or trauma; Fall; Initial encounter; Abrasion TECHNIQUE: Axial computed tomography images of the cervical spine without intravenous contrast. This CT exam was performed using one or more of the following dose reduction techniques: automated exposure control, adjustment of the mA and/or kV according to patient size, and/or use of iterative reconstruction technique. Coronal and sagittal reformatted images were created and reviewed. EXAM DATE/TIME: 11/29/2016 9:40 PM COMPARISON: Prior cervical spine CT of 07/20/2016 FINDINGS: VERTEBRAE: Marked degenerative changes at the atlantoaxial joint. No acute cervical spine fractures visualized. No significant vertebral subluxation seen on the sagittal reformatted images. Normal alignment of the facet joints. DISCS/SPINAL CANAL/NEURAL FORAMINA: Mild to moderate multilevel degenerative disc disease, greatest at C4-5. Mild, multilevel facet joint degenerative changes. SOFT TISSUES: No acute abnormality of the visualized soft tissues is seen. LUNG APICES: No pneumothorax seen. IMPRESSION: - No acute cervical spine fractures identified. - See above for remaining findings.
--- NOTE | 2016-11-30 02:12 | CP.PCM.HP ---
<HEATH DELGADO - Last Filed: 11/30/16 02:15> History of Present Illness - History of Present Illness History of Present Illness: CC: Mechanical Fall HPI: Mrs. Roman is a 66 year old female, with a past medical history of "angulated" intracerebral vascular malformation, hypertension, hypothyroidism, diabetes and hypercholesterolemia, presented to the ED after she suffered superficial trauma from a mechanical fall. Patient reports that she was walking her dog earlier in the afternoon on 11/29 and she bent over to tie her shoe. She states that as she was doing so she fell backwards and hit the back of her head. Patient denies headache, changes in vision, vertigo, gait imbalance or syncope prior to or after her fall. She reports that she has an "angular vascular malformation" in her brain and [facility] "been there since she was a child most likely". Patient received suturing and wound care for the lacerations she suffered from her fall in the ED. A CT head and CT cervical spine both showed no acute findings. A lesion consistent with an intracerebral cavernous hemangioma was seen on CT head. Patient was found to have a BP of 150/51 at 21:11 and then 118/67 at 23:34, however she reports that her normal BP at home is in the 110-120/70 range. Currently, patient reports that she is asymptomatic. She denies headache, dizziness, changes in her vision, fever, shortness of breath, chest pain, palpitations, abdominal pain, N/V or diarrhea. PMH: "angulated" intracerebral vascular malformation, hypertension, hypothyroidism, diabetes and hypercholesterolemia PSH: torn meniscus repair, carpal tunnel surgery, tonsillectomy, cataract extraction Family History: Non-contributory Social History: denies tobacco, alcohol or illicit drug use Allergies: NKDA Home meds: as per MAR Present on Admission - Present on Admission Any Indicators Present on Admission: No Review of Systems - Review of Systems Review of Systems: Please refer to HPI Past Patient History - Infectious Disease Hx of Infectious Diseases: None - Past Social History Smoking Status: Never Smoked - CARDIAC Hx Hypertension: Yes - PULMONARY Hx Respiratory Disorders: No - NEUROLOGICAL Hx Neurological Disorder: No - HEENT Hx HEENT Problems: No - RENAL Hx Chronic Kidney Disease: No - ENDOCRINE/METABOLIC Hx Endocrine Disorders: Yes Hx Diabetes Mellitus Type 1: Yes Hx Hypothyroidism: Yes - HEMATOLOGICAL/ONCOLOGICAL Hx Blood Disorders: No - INTEGUMENTARY Hx Dermatological Problems: No - MUSCULOSKELETAL/RHEUMATOLOGICAL Hx Arthritis: Yes - GASTROINTESTINAL Hx Gastrointestinal Disorders: No - GENITOURINARY/GYNECOLOGICAL Hx Genitourinary Disorders: No - PSYCHIATRIC Hx Psychophysiologic Disorder: Yes Hx Anxiety: Yes Hx Depression: Yes Hx Substance Use: No - SURGICAL HISTORY Hx Appendectomy: Yes Other/Comment: torn meniscus repair, carpal tunnel surgery, tonsillectomy, cataract extraction - ANESTHESIA Hx Anesthesia: Yes Hx Anesthesia Reactions: No Hx Malignant Hyperthermia: No Meds Allergies/Adverse Reactions: Allergies Allergy/AdvReac Type Severity Reaction Status Date / Time No Known Allergies Allergy Verified 11/29/16 21:02 Physical Exam - Constitutional Appears: No Acute Distress - Head Exam Head Exam: NORMOCEPHALIC Additional comments: 2-3cm laceration with sutures on R posterior cranium - Eye Exam Eye Exam: EOMI, Normal appearance, PERRL. absent: Conjunctival injection, Periorbital swelling, Periorbital tenderness Pupil Exam: NORMAL ACCOMODATION, PERRL. absent: Fixed, Irregular, Unequal - ENT Exam ENT Exam: Mucous Membranes Moist, Normal Exam - Neck Exam Neck exam: Positive for: Full Rom, Normal Inspection. Negative for: Lymphadenopathy, Meningismus, Tenderness - Respiratory Exam Respiratory Exam: Clear to Auscultation Bilateral, NORMAL BREATHING PATTERN. absent: Rales, Rhonchi, Wheezes, Respiratory Distress, Stridor - Cardiovascular Exam Cardiovascular Exam: REGULAR RHYTHM, RRR, +S1, +S2. absent: Bradycardia, Tachycardia - GI/Abdominal Exam GI & Abdominal Exam: Normal Bowel Sounds, Soft. absent: Distended, Firm, Tenderness - Exam Exam: absent: Bladder Distension - Extremities Exam Extremities exam: Positive for: normal capillary refill, pedal pulses present. Negative for: calf tenderness, pedal edema - Back Exam Back exam: absent: CVA tenderness (L), CVA tenderness (R) - Neurological Exam Neurological exam: Alert, CN II-XII Intact, Oriented x3 - Psychiatric Exam Psychiatric exam: Normal Affect, Normal Mood - Skin Skin Exam: Dry, Intact, Normal Color, Warm Results - Vital Signs Recent Vital Signs: Last Vital Signs Temp 97.7 F 11/30/16 01:46 Pulse 80 11/30/16 01:46 Resp 16 11/30/16 01:46 BP 102/60 08/07/17 01:46 Pulse Ox 96 11/30/16 01:46 - Labs Result Diagrams: 11/29/16 23:12 11/29/16 23:12 Assessment & Plan - Assessment and Plan (Free Text) Assessment: 66 year old female, with a past medical history of "angulated" intracerebral vascular malformation, hypertension, hypothyroidism, diabetes and hypercholesterolemia, presented to the ED after she suffered superficial trauma from a mechanical fall Plan: 1. S/P Mechanical Fall -No acute findings on CT head/cervical spine -Lesion consistent with an intracerebral cavernous hemangioma was seen on CT head; patient reporting history of intracerebral vascular malformation -appropriate wound care provided in ED -Percocet 5/325 PRN for severe pain -Tylenol 650 PRN for moderate pain -Motrin 400 PRN for mild pain -Zofran PRN for N/V -neuro checks Q4H -neurology consulted, will follow recommendations 2. Leukocytosis -WBC was 14.2 on 11/29 -afebrile, normotensive and HR wnl -given one dose of Ancef in ED -cont to monitor with CBC 3. History of DM2 -cont metformin -Humulin SSI medium -levemir 14u HS -fingersticks Q4H 4. History of Hypothyroidism -hold home synthroid pending TSH 5. History of HLD -cont zetia 6. GI/DVT Prophylaxis -protonix/scd's Patient seen and case discussed in detail with attending, Dr. Tomas. - Date & Time Date: 11/30/16 Time: 02:15 Decision To Admit - Pt Status Changed To: Hospital Disposition Of: Observation - . Bed Request Type: Remote Telemetry <Alian Tomas - Last Filed: 11/30/16 04:33> Results - Vital Signs Recent Vital Signs: Last Vital Signs Temp 97.7 F 11/30/16 01:46 Pulse 80 11/30/16 01:46 Resp 19 11/30/16 02:12 BP 102/60 11/30/16 01:46 Pulse Ox 97 11/30/16 02:12 - Labs Result Diagrams: 11/29/16 23:12 11/29/16 23:12 Attending/Attestation - Attestation I have personally seen and examined this patient.: Yes I have fully participated in the care of the patient.: Yes I have reviewed all pertinent clinical information: Yes Notes (Text): 11/30/16 04:03 Patient was seen when she was in bed # 1 in the ER. Agree with history , physical examination, assessment and plan. Following information should be added. This 66 year old white woman with PMH of NIDDM, HLD, HTN, hypothyroidism, anxiety,depression, cerebellar hemorrhage, past Surgical history of appendectomy, tonsillectomy, two knee surgeries, two surgeries for carpal tunnel syndrome, two surgeries for cataract,three surgeries for trigger finger, social history positive for smoking 5 cigarettes per week for 2 years, 30 years ago, occasional alcohol use, family history positive for mastectomy(Sister),CAD(Father),HTN(Mother), review of systems positive for fall on ice 5 years ago, arthritis of both knees, back, neck,hands, decrease hearing in left ear, epistaxis as a child , allergies, sinus problems, peptic ulcer disease in 1969, blockage in urine in '.
[2016-11-30] MEDS: Oxycodone/Acetaminophen 5/325 mg Tab PO PRN ×3 (06:09→14:55)
[2016-11-30] MEDS ORDERED: Levothyroxine 88 MCG TAB PO SCH (07:30)
[2016-11-30 07:54] LABS: BASO # 0.07 K/mm3 (0.0-2.0); BASO % 0.7 % (0.0-3.0); EOS # 0.2 (0.0-0.7); EOS % 1.9 % (1.5-5.0); GRAN # 5.66 (1.4-6.5); GRAN % 60.7 % (50.0-68.0); HEMOGLOBIN 11.1 gm/dL (12.0-16.0); LYMPH # 2.6 (1.2-3.4); LYMPH % 27.9 % (22.0-35.0); MEAN CELL VOLUME 92.7 fL (80.0-105.0); MEAN CORPUSCULAR HEMOGLOBIN 30.1 pg (25.0-35.0); MEAN CORPUSCULAR HGB CONC 32.5 g/dl (31.0-37.0); MEAN PLATELET VOLUME 9.6 fl (7.0-11.0); MONO # 0.8 (0.1-0.6); MONO % 8.8 % (1.0-6.0); PLATELET COUNT 338 10^3/uL (120.0-450.0); RBC 3.69 10^6/uL (3.5-6.1); RED CELL DISTRIBUTION WIDTH 13.4 % (11.5-14.5); WHITE BLOOD COUNT 9.3 10^3/ul (4.5-11.0)
[2016-11-30 08:10] LABS: ALB/GLOB RATIO 1.3 (1.1-1.8); ALBUMIN 3.4 g/dL (3.0-4.8); ALT/SGPT 38 U/L (7-56); AST/SGOT 27 U/L (15-39); BLOOD UREA NITROGEN 26 mg/dL (7-21); CALCIUM 8.7 mg/dL (8.4-10.5); GFR AFRICAN-AMERICAN > 60; GFR NON-AFRICAN AMERICAN > 60
[2016-11-30] MEDS: Insulin Reg-MEDIUM-Coverage SC SCH ×2 (08:29→11:58)
[2016-11-30] MEDS: Sodium Chloride 0.9% 1,000 ML IV SCH (08:54)
[2016-11-30 09:01] VITALS: BP 93/55; PULSE 62; RESP 17; TEMP 97.9; O2SAT 98
--- NOTE | 2016-11-30 09:57 | PN ---
SUBJECTIVE: of the cerebral cortex, history of multiple falls in the past, history of hypertension. The patient most recently walking her dog when she tripped, feel and hit the back of her head on the pavement, had massive bleeding and hematoma of the occipital scalp, came to the emergency room, was stabilized. CT only showed the hematoma and the cavernous angioma. Tapan Mariano MD
--- NOTE | 2016-11-30 10:41 | CP.PCM.CON ---
<Silvano Tapia - Last Filed: 11/30/16 12:18> History of Present Illness - History of Present Illness History of Present Illness: Consult Note for Dr. Frausto 66 y/o F with PMH of angulated cavernous hemangioma, HTN, hypothyroidism, DM, and HLD presented after a mechanical fall. Pt states she was out walking her dog when she went down to tie her shoe. At that point she lost her balance and fell back, hitting her head. Her fall was witnessed by 2 bystanders who called the ambulance for her. She states she did not lose consciousness at any point, nor did she have tongue biting or loss of bowel/bladder function. Pt was brought to the hospital for further evaluation. Pt has a hx of cavernous hemangioma which was diagnosed at [facility] on Head CT after slipping on ice and hitting her head. Currently, the patient is doing well with no acute findings. Pt has no complaints at this time and would like to go home. Denies CP, SOB, N/V/D, fever, chills, syncope, dizziness, diplopia. PMH: Angulated cavernous hemangioma, hypertension, hypothyroidism, DM, hypercholesterolemia PSH: torn meniscus repair, carpal tunnel surgery, tonsillectomy, cataract extraction Family History: Non-contributory Social History: denies tobacco, alcohol or illicit drug use Allergies: NKDA Home meds: Reviewed, as per chart. Review of Systems - Review of Systems Review of Systems: 13 pt review of systems as per HPI, otherwise negative. Past Patient History - Infectious Disease Hx of Infectious Diseases: None - Past Social History Smoking Status: Never Smoked - CARDIAC Hx Hypertension: Yes - PULMONARY Hx Respiratory Disorders: No - NEUROLOGICAL Hx Neurological Disorder: No - HEENT Hx HEENT Problems: No - RENAL Hx Chronic Kidney Disease: No - ENDOCRINE/METABOLIC Hx Endocrine Disorders: Yes Hx Diabetes Mellitus Type 1: Yes Hx Diabetes Mellitus Type 2: Yes Hx Hypothyroidism: Yes - HEMATOLOGICAL/ONCOLOGICAL Hx Blood Disorders: No - INTEGUMENTARY Hx Dermatological Problems: No - MUSCULOSKELETAL/RHEUMATOLOGICAL Hx Arthritis: Yes Hx Falls: Yes - GASTROINTESTINAL Hx Gastrointestinal Disorders: No - GENITOURINARY/GYNECOLOGICAL Hx Genitourinary Disorders: No - PSYCHIATRIC Hx Psychophysiologic Disorder: Yes Hx Anxiety: Yes Hx Depression: Yes - SURGICAL HISTORY Hx Appendectomy: Yes Other/Comment: torn meniscus repair, carpal tunnel surgery, tonsillectomy, cataract extraction - ANESTHESIA Hx Anesthesia: Yes Hx Anesthesia Reactions: No Hx Malignant Hyperthermia: No Meds Home Medications: Home Medication List Medication Instructions Recorded Confirmed Type Acetaminophen [Tylenol 325mg tab] 650 mg PO Q6H PRN tab 11/30/16 Rx Ezetimibe [Zetia] 10 mg PO DAILY tab 11/30/16 Rx Insulin Human Regular-MED [HumuLIN 0 units SC ACHS ml 11/30/16 Rx R MED] Levothyroxine [Synthroid] 88 mcg PO ACB tab 11/30/16 Rx Pantoprazole [Protonix Inj] 40 mg IVP DAILY vial 11/30/16 Rx metFORMIN [glucOPHAGE] 500 mg PO DAILY tab 11/30/16 Rx Allergies/Adverse Reactions: Allergies Allergy/AdvReac Type Severity Reaction Status Date / Time No Known Allergies Allergy Verified 11/29/16 21:02 - Medications Medications: Current Medications Acetaminophen (Tylenol 325mg Tab) 650 mg PO Q6H PRN PRN Reason: Pain, moderate (4-7) Ezetimibe (Zetia) 10 mg PO DAILY [facility] Last Admin: 11/30/16 09:31 Dose: 10 mg Sodium Chloride (Sodium Chloride 0.9%) 1,000 mls @ 125 mls/hr IV .Q8H [facility] Last Admin: 11/30/16 08:54 Dose: 125 mls/hr Ibuprofen (Motrin Tab) 400 mg PO Q6H PRN PRN Reason: Pain, Mild (1-3) Insulin Detemir (Levemir) 14 unit SC HS [facility] Last Admin: 11/30/16 02:01 Dose: 14 unit Insulin Human Regular (Humulin R Med) 0 units SC ACHS [facility] PRN Reason: Protocol Last Admin: 11/30/16 08:29 Dose: 1 units Levothyroxine Sodium (Synthroid) 88 mcg PO ACB [facility] Last Admin: 11/30/16 08:30 Dose: 88 mcg Metformin HCl (Glucophage) 500 mg PO DAILY [facility] Last Admin: 11/30/16 09:31 Dose: 500 mg Ondansetron HCl (Zofran Inj) 4 mg IVP Q6H PRN PRN Reason: Nausea/Vomiting Last Admin: 11/30/16 06:11 Dose: 4 mg Oxycodone/Acetaminophen (Percocet 5/325 Mg Tab) 1 tab PO Q4H PRN PRN Reason: Pain, severe (8-10) Stop: 12/03/16 01:48 Last Admin: 11/30/16 06:09 Dose: 1 tab Pantoprazole Sodium (Protonix Inj) 40 mg IVP DAILY [facility] Last Admin: 11/30/16 09:31 Dose: 40 mg Pneumococcal Polyvalent Vaccine (Pneumovax 23 Vaccine) 0.5 ml IM .ONCE ONE Stop: 12/02/16 10:01 Physical Exam - Constitutional Appears: Well, No Acute Distress - Head Exam Head Exam: ATRAUMATIC, NORMAL INSPECTION, NORMOCEPHALIC - Eye Exam Eye Exam: EOMI, PERRL - ENT Exam ENT Exam: Mucous Membranes Moist - Neck Exam Neck exam: Positive for: Normal Inspection. Negative for: Lymphadenopathy - Respiratory Exam Respiratory Exam: Clear to Auscultation Bilateral, NORMAL BREATHING PATTERN. absent: Rales, Rhonchi, Wheezes - Cardiovascular Exam Cardiovascular Exam: RRR, +S1, +S2 - GI/Abdominal Exam GI & Abdominal Exam: Normal Bowel Sounds, Soft. absent: Tenderness - Extremities Exam Extremities exam: Positive for: normal inspection. Negative for: calf tenderness, pedal edema - Neurological Exam Neurological exam: Alert, CN II-XII Intact, Oriented x3 - Psychiatric Exam Psychiatric exam: Normal Affect, Normal Mood - Skin Skin Exam: Intact, Normal Color, Warm Results - Vital Signs Recent Vital Signs: Last Vital Signs Temp 97.9 F 11/30/16 06:00 Pulse 62 11/30/16 06:00 Resp 17 11/30/16 06:00 BP 93/55 L 11/30/16 06:00 Pulse Ox 98 11/30/16 06:00 - Labs Result Diagrams: 11/30/16 07:30 11/30/16 07:30 Labs: Laboratory Results - last 24 hr 11/30/16 11/30/16 11/30/16 07:30 07:30 08:23 WBC 9.3 D RBC 3.69 Hgb 11.1 L Hct 34.2 L MCV 92.7 MCH 30.1 MCHC 32.5 RDW 13.4 Plt Count 338 MPV 9.6 Gran % 60.7 Lymph % (Auto) 27.9 Larue % (Auto) 8.8 H Eos % (Auto) 1.9 Baso % (Auto) 0.7 Gran # 5.66 Lymph # 2.6 Larue # 0.8 H Eos # 0.2 Baso # 0.07 Sodium 138 Potassium 4.2 Chloride 106 Carbon Dioxide 25 Anion Gap 11 BUN 26 H Creatinine 0.6 Est GFR ( Amer) > 60 Est GFR (Non-Af Amer) > 60 POC Glucose (mg/dL) 170 H Random Glucose 193 H Calcium 8.7 Total Bilirubin 0.3 AST 27 ALT 38 Alkaline Phosphatase 61 Total Protein 6.0 Albumin 3.4 Globulin 2.6 Albumin/Globulin Ratio 1.3 TSH 3rd Generation 11/30/16 09:15 WBC RBC Hgb Hct MCV MCH MCHC RDW Plt Count MPV Gran % Lymph % (Auto) Larue % (Auto) Eos % (Auto) Baso % (Auto) Gran # Lymph # Larue # Eos # Baso # Sodium Potassium Chloride Carbon Dioxide Anion Gap BUN Creatinine Est GFR ( Amer) Est GFR (Non-Af Amer) POC Glucose (mg/dL) Random Glucose Calcium Total Bilirubin AST ALT Alkaline Phosphatase Total Protein Albumin Globulin Albumin/Globulin Ratio TSH 3rd Generation 1.16 Assessment & Plan - Assessment and Plan (Free Text) Plan: 66 y/o F with PMH of angulated cavernous hemangioma, HTN, hypothyroidism, DM, and HLD presented after a mechanical fall. Cervical CT displayed no acute findings. Head CT demonstrated a 1.3 hyperdense lesion in right posterior fossa , consistent with a cavernous hemangioma. Pt did arrive to hospital with elevated glucose levels which also may have contributed to her loss of balance. Pt is currently neurologically stable. Will sign off at this time, please reconsult at necessary. Plan: Physical therapy Adequate hydration Strict glycemic control Goal glucose from 140-180 Willie, PGY-2 <Alberto Frausto - Last Filed: 11/30/16 12:41> Meds - Medications Medications: Current Medications Acetaminophen (Tylenol 325mg Tab) 650 mg PO Q6H PRN PRN Reason: Pain, moderate (4-7) Clonazepam (Klonopin) 0.5 mg PO TID PRN; Protocol PRN Reason: Anxiety Last Admin: 11/30/16 11:58 Dose: 0.5 mg Ezetimibe (Zetia) 10 mg PO DAILY [facility] Last Admin: 11/30/16 09:31 Dose: 10 mg Sodium Chloride (Sodium Chloride 0.9%) 1,000 mls @ 125 mls/hr IV .Q8H [facility] Last Admin: 11/30/16 08:54 Dose: 125 mls/hr Ibuprofen (Motrin Tab) 400 mg PO Q6H PRN PRN Reason: Pain, Mild (1-3) Insulin Detemir (Levemir) 14 unit SC HS [facility] Last Admin: 11/30/16 02:01 Dose: 14 unit Insulin Human Regular (Humulin R Med) 0 units SC ACHS [facility] PRN Reason: Protocol Last Admin: 11/30/16 11:58 Dose: 5 units Levothyroxine Sodium (Synthroid) 88 mcg PO ACB [facility] Last Admin: 11/30/16 08:30 Dose: 88 mcg Metformin HCl (Glucophage) 500 mg PO DAILY [facility] Last Admin: 11/30/16 09:31 Dose: 500 mg Ondansetron HCl (Zofran Inj) 4 mg IVP Q6H PRN PRN Reason: Nausea/Vomiting Last Admin: 11/30/16 06:11 Dose: 4 mg Oxycodone/Acetaminophen (Percocet 5/325 Mg Tab) 1 tab PO Q4H PRN PRN Reason: Pain, severe (8-10) Stop: 12/03/16 01:48 Last Admin: 11/30/16 11:13 Dose: 1 tab Pantoprazole Sodium (Protonix Inj) 40 mg IVP DAILY [facility] Last Admin: 11/30/16 09:31 Dose: 40 mg Pneumococcal Polyvalent Vaccine (Pneumovax 23 Vaccine) 0.5 ml IM .ONCE ONE Stop: 12/02/16 10:01 Results - Vital Signs Recent Vital Signs: Last Vital Signs Temp 97.9 F 11/30/16 06:00 Pulse 62 11/30/16 06:00 Resp 17 11/30/16 06:00 BP 93/55 L 11/30/16 06:00 Pulse Ox 98 11/30/16 06:00 - Labs Result Diagrams: 11/30/16 07:30 11/30/16 07:30 Labs: Laboratory Results - last 24 hr 11/30/16 11/30/16 11/30/16 07:30 07:30 08:23 WBC 9.3 D RBC 3.69 Hgb 11.1 L Hct 34.2 L MCV 92.7 MCH 30.1 MCHC 32.5 RDW 13.4 Plt Count 338 MPV 9.6 Gran % 60.7 Lymph % (Auto) 27.9 Larue % (Auto) 8.8 H Eos % (Auto) 1.9 Baso % (Auto) 0.7 Gran # 5.66 Lymph # 2.6 Larue # 0.8 H Eos # 0.2 Baso # 0.07 Sodium 138 Potassium 4.2 Chloride 106 Carbon Dioxide 25 Anion Gap 11 BUN 26 H Creatinine 0.6 Est GFR ( Amer) > 60 Est GFR (Non-Af Amer) > 60 POC Glucose (mg/dL) 170 H Random Glucose 193 H Calcium 8.7 Total Bilirubin 0.3 AST 27 ALT 38 Alkaline Phosphatase 61 Total Protein 6.0 Albumin 3.4 Globulin 2.6 Albumin/Globulin Ratio 1.3 TSH 3rd Generation 11/30/16 11/30/16 09:15 11:37 WBC RBC Hgb Hct MCV MCH MCHC RDW Plt Count MPV Gran % Lymph % (Auto) Larue % (Auto) Eos % (Auto) Baso % (Auto) Gran # Lymph # Larue # Eos # Baso # Sodium Potassium Chloride Carbon Dioxide Anion Gap BUN Creatinine Est GFR ( Amer) Est GFR (Non-Af Amer) POC Glucose (mg/dL) 257 H Random Glucose Calcium Total Bilirubin AST ALT Alkaline Phosphatase Total Protein Albumin Globulin Albumin/Globulin Ratio TSH 3rd Generation 1.16 Attending/Attestation - Attestation I have personally seen and examined this patient.: Yes I have fully participated in the care of the patient.: Yes I have reviewed all pertinent clinical information: Yes
--- NOTE | 2016-11-30 13:08 | CARD ---
APPROVED REPORT EKG Measurement Heart [id number] <Conclusion> Normal sinus rhythm Normal ECG
--- NOTE | 2016-12-01 00:31 | CON ---
HISTORY OF PRESENT ILLNESS: The patient is a 66-year-old female who was admitted on the medical floor status post fall. The patient was found to have 1.3 hyperdense lesion on the right posterior fossa consistent with hematoma. Psych consult was called for evaluation or depressive symptoms. The patient was seen and examined today. The patient presented to be alert, and oriented, pleasant cooperative. The patient reported that she fell because she lost her balance when she was tying the shoelace. Moreover, the patient was walking with her dog who pulled her and she fell. Right now, the patient's family wants to adopt the dog and the patient was upset about that. The patient states most likely her son will take care of the dog and she feels okay with that. The patient reported that she has not good relationship with her and they are just coexisting together. The patient reported due to financial issues she cannot leave him. The patient reported that she has her moments when she feels very depressed, but adamantly denied thoughts of harming herself or others. The patient said that she has strong buddhism belief and she cannot do anything in order to harm herself. The patient states "I will go to heaven, but not to hell, I cannot kill myself." The patient reported that she might benefit from seeing therapist and psychiatrist in the community. The patient asked about local psychiatrist. The patient was provided with contact information for . The patient reported that she is interested to follow up with him. The patient denied hearing voices. Denied seeing things. Denied paranoid ideation. The patient denied feeling anxious at the moment of the interview, but at times she feels anxious. Reported to have fair appetite and sleep. PAST PSYCHIATRIC HISTORY: The patient denied that she ever been evaluated by psychiatrist in the past. The patient reported her primary care physician, Dr. Mariano is prescribing Klonopin for her anxiety. The patient was educated about risks, benefits, alternatives of the Klonopin. The patient was educated about risk of fall. The patient verbalized understanding. PHYSICAL EXAMINATION: VITAL SIGNS: Stable. Temperature 97.9, pulse is 62, blood pressure 192/55, respirations 17 and oxygen saturation is 98. MEDICATIONS: Reviewed. The patient is on Klonopin 0.5 mg 3 times a day as needed for anxiety. The patient is on Zetia, Motrin, Levemir, Humulin, Synthroid, Glucophage, Zofran, Percocet, Humalog and sodium chloride. LABORATORY DATA: Reviewed. MENTAL STATUS EXAMINATION: The patient appear to be alert and oriented. Pleasant and cooperative. Fair eye contact. Speech was normal, rate, volume in quality and quantity. Mood described at times feels depressed. Affect was reactive. Mood congruent. Thought process is coherent and goal directed. Thought content the patient denied visual visual or auditory hallucinations and paranoid ideations. The denied thoughts of harming herself or others. Denies intent or plan. The patient does not present to be a psychotic or in any distress. Did not verbalize any thoughts of harming herself or others with nursing staff. IMPRESSION: Rule out adjustment disorder. Rule out generalized anxiety disorder. Rule out depression and anxiety due to general medical condition. Continue current management. Continue current medication. Discharge provided the patient with the information of local psychiatrist. The patient was found to be pose no threats to self or others. The patient was educated in case of the worsening of the symptoms, call 911 or come back to the emergency room. The patient also was provided the business card of this auto service writer. Thank you very much for letting me participate in care of your patient's discharge. We will sign off. Kallie Carlson MD
[2016-12-02] MEDS ORDERED: Pneumococcal 23-Valent Vaccine IM ONE (10:00)
== END 2016-11-30 16:19 | disposition home or self-care (01) ==
LOC: ED 20:56 → ERH 11-30 00:14 → 3RSO 11-30 05:42
PROVIDERS: ADMIT Internal Medicine; ATTEND Internal Medicine
DX: D18.00 Hemangioma unspecified site (principal); E03.9 Hypothyroidism, unspecified; E10.9 Type 1 diabetes mellitus without complications; E78.00 Pure hypercholesterolemia, unspecified; E78.5 Hyperlipidemia, unspecified; I10 Essential (primary) hypertension; Q27.9 Congenital malformation of peripheral vascular system, unspecified; S00.03XA Contusion of scalp, initial encounter; W18.39XA Other fall on same level, initial encounter; Y93.01 Activity, walking, marching and hiking; Y93.K1 Activity, walking an animal; Z79.84 Long term (current) use of oral hypoglycemic drugs; Z90.49 Acquired absence of other specified parts of digestive tract; Z91.81 History of falling; Z98.49 Cataract extraction status, unspecified eye; F32.89 Other specified depressive episodes; D72.829 Elevated white blood cell count, unspecified; F17.210 Nicotine dependence, cigarettes, uncomplicated; Z82.49 Family history of ischemic heart disease and other diseases of the circulatory system; M17.0 Bilateral primary osteoarthritis of knee; M19.042 Primary osteoarthritis, left hand; M19.041 Primary osteoarthritis, right hand; F43.20 Adjustment disorder, unspecified; F41.1 Generalized anxiety disorder; F06.4 Anxiety disorder due to known physiological condition
CPT/HCPCS: 36415; 70450; 72125; 80053; 82948; 84443; 85025; 85610; 85730; 93005; 96372; 96374; 96375; 97116; 99285; C9113; G0378; G8978; G8979; G8980; J0690; J2405; J7040